=== PATIENT | female | born 1950 | race Two or more races ===

== ENCOUNTER 2017-09-14 11:55 | Outpatient (CLI) | payer OTHER | END 2017-09-14 12:08 | disposition home or self-care (01) | LOC: LAB 11:55 | DX: D68.8 Other specified coagulation defects (principal) ==

== ENCOUNTER 2017-09-14 12:30 | Outpatient (CLI) | payer OTHER | END 2017-09-14 12:40 | disposition home or self-care (01) | LOC: RAD 12:30 | DX: D68.8 Other specified coagulation defects (principal) ==

== ENCOUNTER → 2017-09-28 | Outpatient (CLI) | payer OTHER ==
[~2017-09-28] MED LIST: HUMULIN 70100 UNIT/2 SUBCUTANEO; LANTUS SOL100 UNIT/1; LYRICA300 MG PO; SYNTHROID200 MCG PO; TRAMADOL HCL50 MG PO
== END | disposition home or self-care (01) ==
LOC: EDBD 14:35 → LAB 14:35
DX: Z02.0 Encounter for examination for admission to educational institution (principal); D68.8 Other specified coagulation defects

== ENCOUNTER 2017-09-30 05:45 | Day surgery (SDC) | payer OTHER | END 2017-09-30 13:20 | disposition home or self-care (01) | LOC: CIR.AMB 05:45 | DX: M54.2 Cervicalgia (principal) ==